=== PATIENT | male | born 1990 | race Caucasian/White ===

== ENCOUNTER 2018-11-04 02:16 | Emergency (ER) | payer BC ==
[~2018-11-04] VITALS: Ht 180.3 cm; Wt 56.8 kg
[2018-11-04 02:22] VITALS: TEMP 97.8
[2018-11-04 02:43] LABS: BASO # 0.1 (0.0-0.2); BASO % 0.6 % (0.0-2.0); EOS # 0.3 (0.0-0.7); EOS % 3.7 % (0-4.0); GRAN # 3.5 (1.4-6.5); GRAN % 41.5 % (42.2-75.2); HEMATOCRIT 45.5 % (42.0-52.0); HEMOGLOBIN 15.7 g/dl (13.5-18.0); LYMPH # 4.1 (1.2-3.4); LYMPH % 49.3 % (20.0-51.0); MEAN CELL VOLUME 89 fl (80.0-100.0); MEAN CORPUSCULAR HEMOGLOBIN 31 pg (27.0-31.0); MEAN CORPUSCULAR HGB CONC 35 g/dl (33.0-37.0); MEAN PLATELET VOLUME 10.5 fl (7.4-10.4); MONO # 0.4 (0.1-0.6); MONO % 4.8 % (1.7-9.3); PLATELET COUNT 250 K/mm3 (130-400); RED BLOOD COUNT 5.14 M/mm3 (4.20-5.60); REDCELL DISTRIBUTION WIDTH-CV 12.3 % (11.5-14.5)
[2018-11-04 02:48] LABS: ALBUMIN 4.8 gm/dL (3.5-5.0); BILIRUBIN,TOTAL 0.9 mg/dL (0.0-1.0); CALCIUM 9.6 mg/dL (8.4-10.2); CREATININE, serum 0.77 (0.66-1.25); POTASSIUM 4.2 mmol/L (3.4-5.0); TOTAL PROTEIN 7.4 gm/dL (6.4-8.2)
[2018-11-04 03:05] LABS: PROLACTIN 86.2 ng/mL (3.7-17.9)
[2018-11-04 04:06] LABS: MUCOUS Present /lpf; PH 5 (5-8); SQUAMOUS EPITHELIAL 0-2 /hpf; URINE APPEARANCE Hazy; URINE BACTERIA None Seen /hpf; URINE BILIRUBIN Negative (NEGATIVE); URINE BLOOD Negative (NEGATIVE); URINE COLOR Yellow; URINE GLUCOSE Negative (NEGATIVE); URINE KETONE 1+ (NEGATIVE); URINE LEUKOCYTE ESTERASE Trace (NEGATIVE); URINE NITRATE Negative (NEGATIVE); URINE PROTEIN(semi-quant) 1+ (NEGATIVE); URINE RBC 0-2 /hpf; URINE UROBILINOGEN Negative (NEGATIVE)
[2018-11-04 04:43] LABS: COLLECTION METHOD CLEAN CATCH
[2018-11-04 05:12] VITALS: BP 128/72; PULSE 82
== END 2018-11-04 05:13 | disposition home or self-care (01) ==
LOC: COL.ER 02:16
PROVIDERS: Emergency Medicine
DX: G98.8 Other disorders of nervous system (principal); R55 Syncope and collapse

== ENCOUNTER 2019-04-15 16:32 | Emergency (ER) | payer BC ==
[~2019-04-15] VITALS: Ht 180.3 cm; Wt 56.8 kg
[2019-04-15 16:38] VITALS: BP 132/72; TEMP 98.5
[2019-04-15 17:08] LABS: BASO # 0.1 (0.0-0.2); BASO % 0.7 % (0.0-2.0); EOS # 0.1 (0.0-0.7); EOS % 1.5 % (0-4.0); GRAN # 4.2 (1.4-6.5); HEMATOCRIT 43.9 % (42.0-52.0); LYMPH # 2.4 (1.2-3.4); LYMPH % 33.2 % (20.0-51.0); MEAN CELL VOLUME 89 fl (80.0-100.0); MEAN CORPUSCULAR HEMOGLOBIN 30 pg (27.0-31.0); MEAN CORPUSCULAR HGB CONC 34 g/dl (33.0-37.0); MEAN PLATELET VOLUME 10.5 fl (7.4-10.4); MONO # 0.5 (0.1-0.6); MONO % 6.3 % (1.7-9.3); PLATELET COUNT 218 K/mm3 (130-400); RED BLOOD COUNT 4.95 M/mm3 (4.20-5.60); REDCELL DISTRIBUTION WIDTH-CV 12.6 % (11.5-14.5)
[2019-04-15 17:24] LABS: ALANINE AMINOTRANSFERASE 17 U/L (21-72); ALKALINE PHOSPHATASE 74 U/L (50-136); ANION GAP 13 mmol/L (7-16); AST,SGOT 29 U/L (15-37); BILIRUBIN,TOTAL 0.8 mg/dL (0.0-1.0); BLOOD UREA NITROGEN 14 mg/dL (9-20); CALCIUM 9.5 mg/dL (8.4-10.2); CARBON DIOXIDE 25 mmol/L (22-30); CHLORIDE 103 mmol/L (98-107); CREATININE, serum 0.89 (0.66-1.25); GLUCOSE 96 mg/dL (74-106); POTASSIUM 3.9 mmol/L (3.4-5.0); SODIUM 142 mmol/L (137-145); TOTAL PROTEIN 7.5 gm/dL (6.4-8.2)
[2019-04-15 17:36] LABS: TROPONIN-I < 0.012 ng/mL (0.000-0.035)
[2019-04-15 18:48] VITALS: PULSE 76
[2019-04-15 19:17] LABS: INR 1.1 (0.8-3.0); PROTHROMBIN TIME 12.4 SECONDS (9.7-12.8)
[2019-04-15 19:20] LABS: PARTIAL THROMBOPLASTIN TIME 33.8 SECONDS (26.0-37.0)
== END 2019-04-15 18:48 | disposition home or self-care (01) ==
LOC: COL.ER 16:32
PROVIDERS: Family Medicine
DX: K21.9 Gastro-esophageal reflux disease without esophagitis (principal); M79.602 Pain in left arm; M54.12 Radiculopathy, cervical region